=== PATIENT | female | born 1975 | race Caucasian/White ===

== ENCOUNTER 2017-10-02 19:27 | Emergency (ER) | payer MEDICAID ==
[~2017-10-02] VITALS: Ht 170.2 cm; Wt 145.2 kg
[~2017-10-02 19:27] MED LIST: AMLODIPINE; AMOXICILLIN 50500 MG PO; BLOOD PRESSURE MED; CALCIUM 500 +1 EAC5; CELEXA; DETROL; DOXYCYCLINE 10100 MG PO; FISH OIL 1,001000 M2; FLONASE 0.05%50 MCG; LISINOPRIL10 MG; METFORMIN 500500 MG PO; NEXIUM40 MG; NORCO 5-325 TA1 EACH PO; POTASSIUM OTC; PRILOSEC 20 MG20 MG PO; SPIRONOLACTONE; TOVIAZ4 MG; UNICOMPLEX M TA1 TA1; XANAX 0.25 MG0.25 MG PO
[2017-10-02 20:07] LABS: INFLUENZA A ANTIGEN None Detected (None Detect); INFLUENZA B ANTIGEN None Detected (None Detect)
[2017-10-02] MEDS ORDERED: AUGMENTIN 875-1 EACH PO (20:43)
[2017-10-02] MEDS ORDERED: DUONEB 2.5-0.5 M3 ML INH (20:43)
[2017-10-02] MEDS ORDERED: FLOVENT HFA 4444 MCG INH (20:43)
[2017-10-02 20:52] VITALS: BP 120/75
== END 2017-10-02 20:54 | disposition home or self-care (01) ==
LOC: M.ERS 19:27
PROVIDERS: Physician Assistant
DX: J40 Bronchitis, not specified as acute or chronic (principal); R50.9 Fever, unspecified; E11.9 Type 2 diabetes mellitus without complications; J45.909 Unspecified asthma, uncomplicated; K21.9 Gastro-esophageal reflux disease without esophagitis; Z88.2 Allergy status to sulfonamides; Z88.8 Allergy status to other drugs, medicaments and biological substances

== ENCOUNTER 2018-01-07 20:33 | Emergency (ER) | payer MEDICAID ==
[~2018-01-07] VITALS: Ht 172.7 cm; Wt 136.1 kg
[~2018-01-07 20:33] MED LIST changes: +AUGMENTIN 875-1 EACH PO; +DUONEB 2.5-0.5 M3 ML INH; +FLOVENT HFA 4444 MCG INH
[2018-01-07] MEDS ORDERED: ZANTAC 150MG T150 MG PO (20:46)
[2018-01-07] MEDS ORDERED: ZOFRAN4 MG PO (21:58)
[2018-01-07 22:09] VITALS: BP 142/83
--- NOTE | 2018-01-08 17:08 | EKG ---
[place] [address] ELECTROCARDIOGRAM REPORT Name: CARLOS EDUARDO ESTRADA Room: [facility]#: [id number] Admission: 01/07/18 Attend Phys: Discharge: 01/07/18 Date of : 73 Report #: [id number] THIS REPORT FOR: //name// [facility] ED Test Date: 2018-01-07 Test Time: 21:47:28 Pat Name: CARLOS EDUARDO ESTRADA Department: Room: Gender: F Senior Marketing Specialist: MR : [id number] Requested By: Milana Coe Order Number: [id number] MD: Boston Gonzalez Measurements Intervals Branch Rate: 101 P: 48 TX: 166 QRS: 10 QRSD: 110 T: 22 QT: 347 QTc: 450 Interpretive Statements Sinus tachycardia RSR' in V1 or V2, right VCD or RVH Borderline T abnormalities, anterior leads Compared to ECG 09/14/2015 23:17:38 Right ventricular hypertrophy now present RSR' in V1 or V2 now present T-wave abnormality now present Electronically Signed On 01-08-2018 17:08:11 CDT by Boston Gonzalez [email or web address] <ELECTRONICALLY SIGNED> By: Boston Gonzalez MD, FACC 01/08/18 1708 46 46 Boston Gonzalez MD, FAC /EPI
== END 2018-01-07 22:11 | disposition home or self-care (01) ==
LOC: M.ERS 20:33
DX: R11.2 Nausea with vomiting, unspecified (principal); R19.7 Diarrhea, unspecified; E11.9 Type 2 diabetes mellitus without complications; J45.909 Unspecified asthma, uncomplicated; K21.9 Gastro-esophageal reflux disease without esophagitis; E66.01 Morbid (severe) obesity due to excess calories; Z88.2 Allergy status to sulfonamides

== ENCOUNTER 2018-07-27 05:25 | Emergency (ER) | payer MEDICAID ==
[~2018-07-27] VITALS: Ht 172.7 cm; Wt 131.5 kg
[~2018-07-27 05:25] MED LIST changes: +ZANTAC 150MG T150 MG PO; +ZOFRAN4 MG PO
[2018-07-27] MEDS ORDERED: ALBUTEROL (05:34)
[2018-07-27] MEDS ORDERED: ZYRTEC10 M5 (05:34)
[2018-07-27] MEDS ORDERED: MUCINEX (05:35)
[2018-07-27] MEDS ORDERED: ZOFRAN ODT4 MG PO (05:56)
[2018-07-27] MEDS ORDERED: PROMETH-CODEIN 65 ML PO (05:56)
[2018-07-27 05:58] LABS: INFLUENZA A ANTIGEN None Detected (None Detect); INFLUENZA B ANTIGEN None Detected (None Detect)
[2018-07-27 06:21] VITALS: BP 123/73
== END 2018-07-27 06:22 | disposition home or self-care (01) ==
LOC: M.ERS 05:25
PROVIDERS: Emergency Medicine
DX: J06.9 Acute upper respiratory infection, unspecified (principal); K21.9 Gastro-esophageal reflux disease without esophagitis; E11.9 Type 2 diabetes mellitus without complications; J45.909 Unspecified asthma, uncomplicated; E66.01 Morbid (severe) obesity due to excess calories; Z68.41 Body mass index [BMI] 40.0-44.9, adult; Z88.2 Allergy status to sulfonamides; Z88.8 Allergy status to other drugs, medicaments and biological substances